=== PATIENT | female | born 1995 | race African-American/Black ===

== ENCOUNTER 2017-06-29 15:34 | Emergency (ER) | payer SELFPAY ==
[~2017-06-29] VITALS: Ht 149.9 cm; Wt 70.0 kg
[2017-06-29 15:50] VITALS: BP 106/73
== END 2017-06-29 18:30 | disposition left against medical advice (07) ==
LOC: ER 18:06
DX: Z53.21 Procedure and treatment not carried out due to patient leaving prior to being seen by health care provider (principal)

== ENCOUNTER 2020-12-22 07:25 | Emergency (ER) | payer MEDICAID ==
[~2020-12-22] VITALS: Ht 149.9 cm; Wt 68.0 kg
[2020-12-22 07:26] VITALS: BP 124/68
[2020-12-22] MEDS ORDERED: IBUPROFEN 600MG TABLET PO STA (07:53)
[2020-12-22 08:17] LABS: BASOPHILS % 0.6 % (0.0-2.0); EOSINOPHILS % 0.2 % (0.0-5.0); HEMATOCRIT. 36.9 % (36.0-48.0); HEMOGLOBIN. 12.1 g/dL (12.0-16.0); LYMPHOCYTES % 32.8 % (20.0-50.0); MEAN CORPUSCULAR HEMOGLOBIN 27.7 pg (28.0-32.0); MEAN CORPUSCULAR VOLUME 84.9 fL (81.0-99.0); MONOCYTES % 6.9 % (2.0-8.0); NEUTROPHILS % 59.5 % (40.0-76.0); PLATELET 247 x1000/uL (130-400); RED BLOOD CELL COUNT 4.35 mill/uL (4.2-5.4)
[2020-12-22 08:22] LABS: CHLORIDE 106 mEq/L (98-107)
[2020-12-22 08:24] LABS: CLARITY URINE CLEAR (CLEAR); COLOR URINE YELLOW (YELLOW); KETONES URINE TRACE (NEGATIVE); LEUKOCYTE ESTERASE URINE NEGATIVE (NEGATIVE); NITRITE URINE NEGATIVE (NEGATIVE); OCCULT BLOOD URINE NEGATIVE (NEGATIVE); PH URINE 5.5 (4.5-8.0); PROTEIN URINE NEGATIVE (NEGATIVE)
[2020-12-22 08:37] LABS: HCG SCREEN NEGATIVE
[2020-12-22] MEDS ORDERED: IBUP-2029 MT (09:35)
== END 2020-12-22 09:46 | disposition home or self-care (01) ==
LOC: EDBD 07:25 → ER 07:25
DX: R10.9 Unspecified abdominal pain (principal); N28.1 Cyst of kidney, acquired
CPT/HCPCS: 36415; 76770; 80053; 81003; 84703; 85025; 93005; 99285

== ENCOUNTER 2021-04-12 05:11 | Emergency (ER) | payer MEDICAID, OTHER ==
[~2021-04-12] VITALS: Ht 149.9 cm; Wt 71.0 kg
[~2021-04-12 05:11] MED LIST: IBUP-2029 MT
[2021-04-12] MEDS ORDERED: AMOX-424 MT (05:34)
[2021-04-12] MEDS ORDERED: BO1 TP (05:35)
[2021-04-12] MEDS ORDERED: TETANUS, DIPHTHERIA, PERTUSSIS VAC/PF 0.5ML (>7YR OLD) IM ONE (05:45)
[2021-04-12 05:46] VITALS: BP 129/81
== END 2021-04-12 05:57 | disposition home or self-care (01) ==
LOC: ER 05:11
DX: S41.152A Open bite of left upper arm, initial encounter (principal); W50.3XXA Accidental bite by another person, initial encounter; Y93.89 Activity, other specified; Y92.89 Other specified places as the place of occurrence of the external cause; Y99.8 Other external cause status
CPT/HCPCS: 90471; 90715; 99283; Z7610

== ENCOUNTER 2021-12-20 23:36 | Emergency (ER) | payer SELFPAY ==
[~2021-12-20] VITALS: Ht 149.9 cm; Wt 68.0 kg
[~2021-12-20 23:36] MED LIST changes: +AMOX-424 MT; +BO1 TP
[2021-12-20 23:51] VITALS: BP 127/79
[2021-12-21 00:53] LABS: CLARITY URINE CLEAR (CLEAR); COLOR URINE YELLOW (YELLOW); KETONES URINE TRACE (NEGATIVE); LEUKOCYTE ESTERASE URINE 1+ (NEGATIVE); NITRITE URINE POSITIVE (NEGATIVE); OCCULT BLOOD URINE NEGATIVE (NEGATIVE); PROTEIN URINE TRACE (NEGATIVE); SPECIFIC GRAVITY URINE 1.029 (1.005-1.030)
[2021-12-21] MEDS ORDERED: FLUC150T5 MT (00:55)
== END 2021-12-21 01:15 | disposition home or self-care (01) ==
LOC: ER 23:36
DX: B37.9 Candidiasis, unspecified (principal); E78.00 Pure hypercholesterolemia, unspecified
CPT/HCPCS: 81003; 81025; 87077; 87086; 87186; 99283; Z7610

== ENCOUNTER 2022-02-22 05:44 | Emergency (ER) | payer SELFPAY ==
[~2022-02-22] VITALS: Ht 149.9 cm; Wt 68.0 kg
[~2022-02-22 05:44] MED LIST changes: +FLUC150T5 MT
[2022-02-22 05:50] VITALS: BP 140/80
[2022-02-22] MEDS ORDERED: MAGNESIUM/ALUMINUM HYDROXIDE/SIMETHICONE 30ML UDC PO STA (07:26)
[2022-02-22 08:19] LABS: CLARITY URINE CLEAR (CLEAR); COLOR URINE YELLOW (YELLOW); KETONES URINE TRACE (NEGATIVE); LEUKOCYTE ESTERASE URINE NEGATIVE (NEGATIVE); NITRITE URINE NEGATIVE (NEGATIVE); OCCULT BLOOD URINE NEGATIVE (NEGATIVE); PROTEIN URINE TRACE (NEGATIVE); SPECIFIC GRAVITY URINE 1.024 (1.005-1.030); UROBILINOGEN URINE 0.2 E.U./dL (0.2-1.0)
[2022-02-22] MEDS ORDERED: OMEP40CA20 MT (08:26)
== END 2022-02-22 09:25 | disposition left against medical advice (07) ==
LOC: ER 05:44
DX: R07.9 Chest pain, unspecified (principal); E78.00 Pure hypercholesterolemia, unspecified
CPT/HCPCS: 71045; 81003; 81025; 93005; 99285

== ENCOUNTER 2023-03-09 23:57 | Emergency (ER) | payer OTHER ==
[~2023-03-09] VITALS: Ht 149.9 cm; Wt 91.0 kg
[~2023-03-09 23:57] MED LIST changes: +FLUC150T46 MT; -FLUC150T5 MT; +OMEP40CA20 MT
[2023-03-10 00:08] VITALS: BP 122/76
== END 2023-03-10 02:00 | disposition left against medical advice (07) ==
LOC: ER 23:57
DX: Z53.21 Procedure and treatment not carried out due to patient leaving prior to being seen by health care provider (principal)
CPT/HCPCS: 99281